=== PATIENT | female | born 1965 | race Caucasian/White ===

== ENCOUNTER 2018-03-09 05:56 | Day surgery (SDC) | END 2018-03-09 13:35 | disposition home or self-care (01) ==

== ENCOUNTER 2019-02-08 06:10 | Day surgery (SDC) | payer OTHER ==
[~2019-02-08] VITALS: Ht 160 cm; Wt 65.0 kg
[2019-02-08] VITALS (16 sets, daily range): BP systolic 118–142; BP diastolic 76–94; PULSE 54–78; RESP 10–28; Ht 160 cm; Wt 65.0 kg
[~2019-02-08 06:10] MED LIST: ATEN100T PO; ATEN50TA PO; LEVO50TA7 PO; LOSA1TAB22 PO
[2019-02-08] MEDS ORDERED: POLYMYXIN/BACITRACIN 1L IRRIG IRR ONE (07:21)
[2019-02-08] MEDS ORDERED: ROPIVACAINE 0.5 % 30 ML VIAL ONE (07:21)
--- NOTE | 2019-02-08 07:22 | HPN ---
Date/Time of Note Date/Time of Note DATE: 02/08/19 TIME: 07:22 Interval H&P Admission Note Pt. seen H&P reviewed: No system changes No changes since the pt was last seen in clinic. Will proceed to surgery. YVES AGEE MD Feb 08, 2019 07:22
[2019-02-08] MEDS ORDERED: FENTAnyl 50 MCG/ML VIAL ONE (07:30)
--- NOTE | 2019-02-08 07:30 | PREAC ---
Date/Time of Note Date/Time of Note DATE: 02/08/19 TIME: 07:27 Anesthesia Eval and Record Evaluation Time Pre-Procedure Interview DATE: 02/08/19 TIME: 07:27 Age 53 Sex female NPO: 8 hrs Preoperative diagnosis retained hardware painful Planned procedure right foot hardware removal Past Medical History Past Medical History: Includes Cardio: HTN Endo: Hypothyroid Surgery & Anesthesia Issues No known issue Meds Anticoagulation: No Beta Riri within 24 hr: Yes Reported Medications Atenolol* (Atenolol*) 100 Mg Tablet, 100 MG PO DAILY, #30 TAB 03/09/18 Levothyroxine Sodium* (Levothyroxine Sodium*) 50 Mcg Tablet, 50 MCG PO BEFORE BREAKFAST, #30 TAB 03/09/18 Meds reviewed: Yes Allergies Coded Allergies: No Known Allergy (Unverified , 03/09/18) Allergies Reviewed: No Labs/Studies Labs Reviewed: Reviewed by anesthesiologist test: Negative Studies: ECG Pre-procedure Exam Last vitals Vital Signs Date Temp Pulse Resp B/P (MAP) Pulse Ox O2 O2 Flow FiO2 Time Delivery Rate 02/08/19 97.2 65 17 135/87 97 Room Air 07:20 (103) Airway: Adequate mouth opening, Adequate thyromental dist Mallampati: Mallampati II Teeth: Normal Lung: Normal Heart: Normal ASA Physical Status ASA physical status: 2 Emergency: None Planned Anesthetic General/MAC: LMA Nerve block: Other (popliteal) Planned Pain Management Parenteral pain med, Local by surgeon Pre-operative Attestations Prior to commencing anesthesia and surgery, the patient was re-evaluated, there was verification of: *The patient's identity *The results of appropriate recent lab work and preoperative vital signs *The above evaluation not changing prior to induction *Anesthetic plan, risk benefits, alternative and complications discussed with patient/family; questions answered; patient/family understands, accepts and wishes to proceed. MOHIT CHA CRNA Feb 08, 2019 07:30
[2019-02-08] MEDS ORDERED: MIDAZOLAM 1 MG/ML 2 ML INJ ONE (07:31)
--- NOTE | 2019-02-08 07:46 | HPN ---
Date/Time of Note Date/Time of Note DATE: 02/08/19 TIME: 07:46 Interval H&P Admission Note Pt. seen H&P reviewed: No system changes YVES AGEE MD Feb 08, 2019 07:46
[2019-02-08] MEDS ORDERED: KETOROLAC 30 MG INJ IV SCH (08:00)
[2019-02-08] MEDS ORDERED: morphine 2 MG INJ IV PRN (08:00)
[2019-02-08] MEDS ORDERED: DEXAMETHASONE 4 MG/ML 5 ML INJ ONE (08:23)
[2019-02-08] MEDS ORDERED: GLYCOPYRROLATE 0.4 MG INJ ONE (08:23)
[2019-02-08] MEDS ORDERED: LIDOCAINE 2% (SDV) 5 ML INJ ONE (08:23)
[2019-02-08] MEDS ORDERED: PROPOFOL 20 ML ONE (08:23)
[2019-02-08] MEDS ORDERED: EPHEDrine 25 MG/5 ML SYG ONE (08:23)
[2019-02-08] MEDS ORDERED: ONDANSETRON 4 MG INJ ONE (08:23)
[2019-02-08] MEDS ORDERED: NEOMYC/POLYMYX/BACIT 30 GM OINT ONE (08:36)
--- NOTE | 2019-02-08 08:57 | PAC ---
Date/Time of Note Date/Time of Note DATE: 02/08/19 TIME: 08:56 Post-Anesthesia Notes Post-Anesthesia Note Last documented vital signs Vital Signs Date Temp Pulse Resp B/P (MAP) Pulse Ox O2 O2 Flow FiO2 Time Delivery Rate 02/08/19 97.2 65 17 135/87 97 Room Air 07:20 (103) Activity: WNL Respiratory function: WNL Cardiovascular function: WNL Mental status: Baseline Pain reasonably controlled: Yes Hydration appropriate: Yes Nausea/Vomiting absent: Yes Comments BP 139/86 Sp02 100% hr 54 rr 10 t 98.2f MOHIT CHA CHARTER BOAT OPERATOR Feb 08, 2019 08:57
[2019-02-08] MEDS ORDERED: FENTAnyl 50 MCG/ML VIAL IV PRN ×2 (09:00)
[2019-02-08] MEDS ORDERED: OXYCODONE/ACETAMINOPHEN (5/325) TAB PO PRN (09:00)
[2019-02-08] MEDS ORDERED: KETOROLAC 30 MG INJ IV PRN (09:00)
[2019-02-08] MEDS ORDERED: MEPERIDINE 25 MG INJ IV PRN (09:00)
[2019-02-08] MEDS ORDERED: ONDANSETRON 4 MG INJ IV PRN (09:00)
[2019-02-08] MEDS ORDERED: HYDROmorphONE 1 MG/5 ML IV SYRINGE IV PRN ×3 (09:00)
[2019-02-08] MEDS ORDERED: LABETALOL HCL 20MG INJ IV PRN (09:00)
--- NOTE | 2019-02-08 12:59 | OPR ---
Date/Time of Note Date/Time of Note DATE: 02/08/19 TIME: 12:56 Operative Report Procedure Date: Feb 08, 2019 Preoperative Diagnosis Left foot painful hardware Postoperative Diagnosis Left foot painful hardware Operation/Procedure Performed Left foot painful hardware removal Surgeon Larry Agee MD Container Coordinator Cr Toro MD Anesthesia Type: general, other (Popliteal block) Anesthesiologist: MOHIT CHA CRNA Tourniquet Time: 27 minutes at 250 mmHg Estimated Blood Loss: minimal Transfusion none Specimen None none Grafts/Implants none Complications none Pt Condition Post Procedure: stable Disposition: PACU Indications Patient is a 53-year-old male who sustained a Lisfranc fracture dislocation that was treated with an open reduction internal fixation several months ago. Patient's fracture has been well-healed and she has pain over her dorsal hardware. Given her ongoing pain patient indicated for surgery. Risk Note: Patient was explained the risks and benefits of surgery and the patient's [place] language including not limited to infection, bleeding, injury to blood vessels, nerves, ligaments or tendons. Risks of anesthesia, deep vein thrombosis and need for reduce future surgery. Patient acknowledged these risk by signing the surgical consent form. Procedure Description The patient was met in the preoperative holding area, marked with the correct operative extremity confirmed with both patient and consent. The patient was then brought back in the operative theater, placed supine on operative table, given preoperative antibiotics and preoperative regional block anesthesia. The patient was then prepped and draped in the normal sterile fashion. All parties in the room did a timeout and everyone agreed it was the correct patient, and extremity and procedure. Patient was initially turned to the where incision was made over the previous incision site and brought down to the neurovascular structures and extensor hallucis brevis and longus which were identified and protected and retracted accordingly. Incision was then brought further down to the plate and screws which were removed without any complication under an extensive amount of scar tissue that was noted to be in the site thus making the dissection more complex and difficult. Once the hardware was removed, they were shown to fully removed under both AP, lateral, oblique x-rays. Wounds were then irrigated thoroughly and then an amniotic membrane was then placed over the most deep layer followed by a second brain placed at the superficial layer followed by closure with a 3-0 Monocryl and a 4-0 nylon in a vertical mattress fashion. Patient was then dressed with a Xeroform triple antibiotic ointment and placed in a compressive Dressing. At the end of the case all sponge and needle counts were correct and the toes were warm and well-perfused in the PACU. Container Coordinator surgeon: An sugar laboratory assistant orthopedic surgeon was needed for this case to assist with positioning of the limb during repair of the injury as well as assisting in removal of the hardware. Without a qualified orthopedic director medical surgical in this case the case would be significantly more complex and longer. LARRY AGEE MD Feb 08, 2019 12:59
== END 2019-02-08 12:22 | disposition home or self-care (01) ==
LOC: SDS 06:10
PROVIDERS: ATTEND Orthopaedic Surgery
DX: T84.84XA Pain due to internal orthopedic prosthetic devices, implants and grafts, initial encounter (principal); M79.672 Pain in left foot; Y79.3 Surgical instruments, materials and orthopedic devices (including sutures) associated with adverse incidents; Y83.8 Other surgical procedures as the cause of abnormal reaction of the patient, or of later complication, without mention of misadventure at the time of the procedure
CPT/HCPCS: 20680; 73630; 82306; J1100; J1170; J1885; J2250; J2405; J2795; J3010; Z7512; Z7610; 88300